=== PATIENT | male | born 1995 | race Caucasian/White ===

== ENCOUNTER 2025-04-05 19:34 | Emergency (ER) | payer BC, MEDICAID ==
[~2025-04-05] VITALS: Ht 180.3 cm; Wt 77.3 kg
[2025-04-05 20:07] VITALS: BP 162/105; PULSE 82; RESP 18; TEMP 98.2; O2SAT 96
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
--- NOTE | 2025-04-05 21:27 | DVH ---
CLINICAL INDICATION: LEFT FOOT PAIN TECHNIQUE: XY L FOOT 3 VIEW XRAY Comparison: None FINDINGS/IMPRESSION: : There is no evidence of acute fracture or dislocation. Soft tissues are unremarkable.
--- NOTE | 2025-04-05 22:03 | DVH ---
CLINICAL INDICATION: LEFT FEMUR PAIN POST FALL TECHNIQUE: XY L FEMUR XRAY Comparison: None FINDINGS/IMPRESSION: : There is no evidence of acute fracture or dislocation. Soft tissues are unremarkable.
== END 2025-04-05 23:57 | disposition home or self-care (01) ==
LOC: ER 19:34
DX: S90.122A Contusion of left lesser toe(s) without damage to nail, initial encounter (principal); S70.312A Abrasion, left thigh, initial encounter; V29.91XA Electric (assisted) bicycle rider (driver) (passenger) injured in unspecified traffic accident, initial encounter; Y93.89 Activity, other specified; Y92.410 Unspecified street and highway as the place of occurrence of the external cause; Y99.8 Other external cause status
CPT/HCPCS: 73630

== ENCOUNTER 2025-05-11 20:25 | Emergency (ER) | payer BC, OTHER ==
[~2025-05-11] VITALS: Ht 177.8 cm; Wt 76.3 kg
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
[2025-05-11] MEDS: MORPHINE SULFATE 4 MG/ML SYR/VIAL IV ONE (20:56)
[2025-05-11] MEDS: ONDANSETRON HCL 4 MG/2 ML VIAL IV ONE ×2 (20:57→22:08)
[2025-05-11] MEDS: SODIUM CHLORIDE 0.9% 1,000 ML IVB ONE (21:01)
[2025-05-11 21:11] LABS: Hematocrit 42.8 % (41.0-53.0); Hemoglobin 15.1 g/dL (13.5-17.5); Mean Corpuscular Hemoglobin 30.5 pg (28.0-32.0); Mean Corpuscular Volume 86.4 fL (80.0-100.0); Nucleated Red Blood Cells % 0.1 %
[2025-05-11 21:16] VITALS: PULSE 89; TEMP 98.7; O2SAT 100
[2025-05-11 21:24] LABS: Alanine Aminotransferase 31 U/L (7-40); Alkaline Phosphatase 58 U/L (46-116); Anion Gap 11 (5-15); BUN/Creatinine Ratio 13.0 (10.0-20.0); Blood Urea Nitrogen 12 mg/dL (9-23); Carbon Dioxide 24 mmol/L (20-31); Chloride 103 mmol/L (98-107); Glucose 100 mg/dL (74-106); Potassium 3.7 mmol/L (3.5-5.1); Sodium 138 mmol/L (136-145); Total Protein 7.6 g/dL (5.7-8.2)
[2025-05-11 21:25] LABS: Bilirubin, Total 0.5 mg/dL (0.2-1.0)
[2025-05-11 21:28] LABS: Albumin 5.1 g/dL (3.2-4.8); Calcium 10.5 mg/dL (8.7-10.4)
[2025-05-11 21:46] LABS: INR 0.99 (0.9-1.15); Partial Thromboplastin Time 25.9 SEC (24.5-34.5); Prothrombin Time 10.5 sec (9.3-11.8)
[2025-05-11] MEDS: IOHEXOL 300 MG/ML 100ML BOTTLE IJ ONE (21:53)
[2025-05-11] MEDS: HYDROmorphone HCL 2 MG/ML VL/or syr IV ONE (22:05)
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
[2025-05-11] MEDS ORDERED: GABA300T4 PO (23:09)
[2025-05-11 23:29] VITALS: BP 110/61; PULSE 61; RESP 13
== END 2025-05-11 23:33 | disposition home or self-care (01) ==
LOC: ER 20:25
DX: S70.12XA Contusion of left thigh, initial encounter (principal); S80.212A Abrasion, left knee, initial encounter; Z79.899 Other long term (current) drug therapy; V98.8XXA Other specified transport accidents, initial encounter; Y93.89 Activity, other specified; Y92.89 Other specified places as the place of occurrence of the external cause; Y99.8 Other external cause status
CPT/HCPCS: 36415; 72194; 73700; 80053; 80320; 85025; 85610; 85730; 96361; 96374; 96375; 99285; J1171; J2270; J2405; J7030; Q9967